=== PATIENT | male | born 1950 | race Two or more races ===

== ENCOUNTER 2016-11-19 07:55 | Emergency (ER) | payer MEDICARE, OTHER ==
[~2016-11-19] VITALS: Ht 157.5 cm; Wt 68.0 kg
[2016-11-19] MEDS ORDERED: ONDA4TAB10 SL (08:24)
--- NOTE | 2016-11-19 08:25 | PHYS DOC ---
Past Medical History Past Medical History: High Cholesterol, Hypertension Past Surgical History: No Surgical History Alcohol Use: None Drug Use: None Adult General Chief Complaint Chief Complaint: NAUSEA/VOMITING/DIARRHA HPI HPI 58-year-old male presenting to the emergency department today with nausea vomiting and watery diarrhea. His been present for 24-48 hours. He has cramping of his abdomen generally without a focus. The pain is moderate to mild nonradiating intermittent and associated with watery stool. Review of systems is negative for chest pain shortness of breath fevers chills muscle aches. He denies neck stiffness. All other review of systems is negative unless otherwise noted in history of present illness. Review of Systems Review of Systems SEE ABOVE. Current Medications Current Medications Current Medications Medications (Trade) Dose Ordered Sig/Aj Start Time Stop Time Status Last Admin Dose Admin Ondansetron HCl (Zofran) 4 mg PRN Q30MIN PRN 11/19/16 09:00 11/19/16 11:08 DC Sodium Chloride (Iv Sodium Chloride 0.9% 500ml Bag) 500 ml @ 500 mls/hr 1X ONCE 11/19/16 09:00 11/19/16 09:59 DC 11/19/16 08:39 500 MLS/HR Allergies Allergies Allergies Coded Allergies Type Severity Reaction Last Updated Verified aspirin Adverse Reaction Intermediate Nausea 03/10/15 No Physical Exam Physical Exam Constitutional: Well developed, well nourished, no acute distress, non-toxic appearance. HENT: Normocephalic, atraumatic, bilateral external ears normal, oropharynx moist, no oral exudates, nose normal. [] Eyes: PERRLA, EOMI, conjunctiva normal, no discharge. [] Neck: Normal range of motion, no tenderness, supple, no stridor. Cardiovascular:Heart rate regular rhythm, no murmur [] Lungs & Thorax: Bilateral breath sounds clear to auscultation Abdomen: Soft nontender abdomen without rebound tenderness or guarding present. Nondistended. Negative McBurneys point. Negative Rodríguez sign. No ecchymosis present. Skin: Warm, dry, no erythema, no rash. [] Back: No tenderness, no CVA tenderness. Extremities: No tenderness, no cyanosis, no clubbing, ROM intact, no edema. [] Neurologic: Alert and oriented X 3, normal motor function, normal sensory function, no focal deficits noted. Psychologic: Affect normal, judgement normal, mood normal. [] Current Patient Data Vital Signs Vital Signs Date Time Temp Pulse Resp B/P Pulse Ox O2 Delivery O2 Flow Rate FiO2 11/19/16 11:00 61 16 142/73 97 Room Air 11/19/16 08:03 98.2 98.2 Lab Values Laboratory Tests Test 11/19/16 08:25 11/19/16 09:12 White Blood Count 6.5x10^3/uL (4.0-11.0) Red Blood Count 7.28x10^6/uL (4.30-5.70) H Hemoglobin 13.2g/dL (13.0-17.5) Hematocrit 41.7% (39.0-53.0) Mean Corpuscular Volume 57fL (79-100) L Mean Corpuscular Hemoglobin 18pg (25-35) L Mean Corpuscular Hemoglobin Concent 32g/dL (31-37) Red Cell Distribution Width 17.2% (11.5-14.5) H Platelet Count 175x10^3/uL (140-400) Neutrophils (%) (Auto) 62% (31-73) Lymphocytes (%) (Auto) 27% (24-48) Monocytes (%) (Auto) 11% (0-9) H Eosinophils (%) (Auto) 0% (0-3) Basophils (%) (Auto) 0% (0-3) Neutrophils # (Auto) 4.1x10^3uL (1.8-7.7) Lymphocytes # (Auto) 1.7x10^3/uL (1.0-4.8) Monocytes # (Auto) 0.7x10^3/uL (0.0-1.1) Eosinophils # (Auto) 0.0x10^3/uL (0.0-0.7) Basophils # (Auto) 0.0x10^3/uL (0.0-0.2) Platelet Estimate Adequate (ADEQUATE) Giant Platelets Occ Hypochromasia Marked Poikilocytosis Present Anisocytosis Slight Microcytosis Marked Target Cells Present Sodium Level 140mmol/L (136-145) Potassium Level 3.4mmol/L (3.5-5.1) L Chloride Level 106mmol/L (98-107) Carbon Dioxide Level 21mmol/L (21-32) Anion Gap 13 (6-14) Blood Urea Nitrogen 18mg/dL (8-26) Creatinine 0.9mg/dL (0.7-1.3) Estimated GFR (Cockcroft-Gault) 83.9 BUN/Creatinine Ratio 20 (6-20) Glucose Level 126mg/dL (70-99) H Calcium Level 9.0mg/dL (8.5-10.1) Total Bilirubin 0.4mg/dL (0.2-1.0) Aspartate Amino Transferase (AST) 27U/L (15-37) Alanine Aminotransferase (ALT) 43U/L (16-63) Alkaline Phosphatase 120U/L (46-116) H Total Protein 8.5g/dL (6.4-8.2) H Albumin 3.8g/dL (3.4-5.0) Albumin/Globulin Ratio 0.8 (1.0-1.7) L Lipase 224U/L (73-393) Urine Collection Type Unknown Urine Color Malu Urine Clarity Cloudy Urine pH 5.5 Urine Specific Ellerbe >=1.030 Urine Protein 100mg/dL (NEG-TRACE) Urine Glucose (UA) Negativemg/dL (NEG) Urine Ketones (Stick) Negativemg/dL (NEG) Urine Blood Negative (NEG) Urine Nitrite Negative (NEG) Urine Bilirubin Negative (NEG) Urine Urobilinogen Dipstick 0.2mg/dL (0.2 mg/dL) Urine Leukocyte Esterase Negative (NEG) Urine RBC 0/HPF (0-2) Urine WBC 0/HPF (0-4) Urine Squamous Epithelial Cells Occ/LPF Urine Amorphous Sediment Present/HPF Urine Bacteria 0/HPF (0-FEW) Urine Mucus Mod/LPF Laboratory Tests 11/19/16 08:25 Laboratory Tests 11/19/16 08:25 EKG EKG [] Radiology/Procedures Radiology/Procedures [] Course & Med Decision Making Course & Med Decision Making Pertinent Labs and Imaging studies reviewed. (See chart for details) [] 66-year-old male presenting to the emergency department today with nausea vomiting and watery diarrhea. He denies blood in his stool. Vital signs. Physical exam was unremarkable. Blood work obtained which. On reexamination the abdomen continued to be nontender. Nontender appendix. Nontender gallbladder. No acute distress. The patient was subsequent discharged home with oral Zofran as needed to follow up with his primary care physician over the next 2-3 days if his symptoms did not improve. [id number] discharge instructions were given. Dragon Disclaimer Dragon Disclaimer This electronic medical record was generated, in whole or in part, using a voice recognition dictation system. Departure Departure Impression: Primary Impression: Nausea vomiting and diarrhea Disposition: HOME, SELF-CARE Condition: STABLE Referrals: ALFONZO GUZMAN MD (PCP) Patient Instructions: Nausea and Vomiting Additional Instructions: Thank you for allowing us to participate in your care today. Followup with your primary care physician in 3 days if your symptoms do not improve. If you do not have a primary care provider you can ask for a list of our primary care providers. Return to the emergency department you have any new or concerning findings. This should be evaluated by the primary care physician and any necessary consulting services for continued management within a few days after discharge. Return to emergency room if you have any new or concerning symptoms including but not limited to fever, chills, nausea, vomiting, intractable pain, any new rashes, chest pain, shortness of air, uncontrolled bleeding, difficulty breathing, and/or vision loss. Scripts Potassium Chloride 10 Meq Tablet.er10 Meq PO DAILY #7 TAB Prov:SAMI FRAGOSO MD 11/19/16 Ondansetron (Zofran Odt)4 Mg Tab.rapdis1 Tab SL PRN Q8HRS PRN NAUSEA #6 TAB Prov:SAMI FRAGOSO MD 11/19/16 SAMI FRAGOSO MD Nov 19, 2016 08:24
[2016-11-19 08:34] LABS: BASO % 0 % (0-3); EOS % 0 % (0-3); HEMATOCRIT 41.7 % (39.0-53.0); HEMOGLOBIN 13.2 g/dL (13.0-17.5); LYMPH # 1.7 x10^3/uL (1.0-4.8); LYMPH % 27 % (24-48); MEAN CORPUSCULAR HEMOGLOBIN 18 pg (25-35); MEAN CORPUSCULAR HGB CONC 32 g/dL (31-37); MEAN CORPUSCULAR VOLUME 57 fL (79-100); MONO % 11 % (0-9); NEUT % 62 % (31-73); PLATELET COUNT 175 x10^3/uL (140-400); RED BLOOD COUNT 7.28 x10^6/uL (4.30-5.70); RED CELL DISTRIBUTION WIDTH 17.2 % (11.5-14.5); WHITE BLOOD COUNT 6.5 x10^3/uL (4.0-11.0)
[2016-11-19 08:44] LABS: CREATININE 0.9 mg/dL (0.7-1.3); GFR 83.9; POTASSIUM 3.4 mmol/L (3.5-5.1)
[2016-11-19 08:50] LABS: ALBUMIN 3.8 g/dL (3.4-5.0); ALBUMIN/GLOBULIN RATIO 0.8 (1.0-1.7); TOTAL BILIRUBIN 0.4 mg/dL (0.2-1.0); TOTAL PROTEIN 8.5 g/dL (6.4-8.2)
[2016-11-19] MEDS ORDERED: ONDANSETRON PF 4 MG/2 ML VIAL. IV PRN (09:00)
[2016-11-19] MEDS ORDERED: IV NORMAL SALINE 500ML BAG 500 ML IV ONE (09:00)
[2016-11-19 09:26] LABS: BILIRUBIN,URINE NEGATIVE (NEG); GLUCOSE,URINE NEGATIVE (NEG); NITRITE,URINE NEGATIVE (NEG); PH,URINE 5.5; PROTEIN,URINE 100 mg/dL (NEG-TRACE); UROBILINOGEN,URINE 0.2 mg/dL (0.2 mg/dL)
[2016-11-19 09:54] LABS: BACTERIA,URINE 0 /HPF (0-FEW); RBC,URINE 0 /HPF (0-2); SQUAMOUS EPITHELIAL CELL,UR OCC /LPF; WBC,URINE 0 /HPF (0-4)
[2016-11-19] MEDS ORDERED: POTA10TA10 PO (10:45)
[2016-11-19 11:00] VITALS: BP 142/73
[2016-11-19 11:46] LABS: HYPOCHROMIA MARKED; MICROCYTOSIS MARKED; PLT ESTIMATE ADEQUATE (ADEQUATE)
[2016-11-19 11:47] LABS: ANISOCYTOSIS SLIGHT; POIKILOCYTOSIS PRESENT; TARGET CELLS PRESENT
== END 2016-11-19 11:08 | disposition home or self-care (01) ==
LOC: ER 07:55
DX: R11.2 Nausea with vomiting, unspecified (principal); R19.7 Diarrhea, unspecified; I10 Essential (primary) hypertension; E78.00 Pure hypercholesterolemia, unspecified; Z88.6 Allergy status to analgesic agent
CPT/HCPCS: 36415; 80053; 81001; 83690; 85007; 85027; 99284; J7040

== ENCOUNTER → 2018-01-29 | Outpatient (CLI) | payer MEDICARE, OTHER | END | disposition home or self-care (01) | LOC: RAD 09:21 | DX: M47.896 Other spondylosis, lumbar region (principal); M25.561 Pain in right knee; M25.562 Pain in left knee | CPT/HCPCS: 72110; 73562 ==

== ENCOUNTER → 2018-02-08 | Outpatient (CLI) | payer MEDICARE, OTHER | END | disposition home or self-care (01) | LOC: MRI 08:12 | DX: M51.36 Other intervertebral disc degeneration, lumbar region (principal); M48.07 Spinal stenosis, lumbosacral region; M25.48 Effusion, other site | CPT/HCPCS: 72148 ==

== ENCOUNTER → 2018-11-29 | Outpatient (CLI) | payer MEDICARE, OTHER ==
[~2018-11-29] MED LIST: IOHEXOL 350 MG/ML 100 ML VIAL. IV ONE; ONDA4TAB10 SL; POTA10TA12 PO
--- NOTE | 2018-11-29 13:12 | RAD ---
PQRS Compliance statement: One or more of the following individualized dose reduction techniques were utilized for this examination: 1. Automated exposure control. 2. Adjustment of the mA and/or kV according to patient size. 3. Use of iterative reconstruction technique. Indication:ABDOMINAL BRUIT INJ 90ML OMNI 350 NO PREV TECHNIQUE: CT angiography abdomen with IV contrast with multiplanar MIP reformats. 3-D volume rendered postprocessing was performed. COMPARISON: None FINDINGS: Heart is normal in size. No pericardial or pleural effusion. Clear lung bases. Artery of phase appearance of the liver, spleen, gallbladder, pancreas, adrenals and kidneys within normal limits. No retroperitoneal adenopathy. Mild diffuse atherosclerotic disease seen of the infrarenal aorta and bilateral common iliac arteries. The celiac axis, splenic artery, left gastric artery, common hepatic artery, SMA, JAVI, bilateral renal arteries are patent without atherosclerotic disease. Visualized bowel within normal limits. Normal appendix. No suspicious bony lesion. IMPRESSION: Mild atherosclerotic disease of the infrarenal aorta and bilateral common iliac arteries. No significant stenosis. Electronically signed by: Tj Frias DO (11/29/2018 1:09 PM) [id number]
== END | disposition home or self-care (01) ==
LOC: CT 15:33
PROVIDERS: ATTEND Family Medicine
DX: I70.0 Atherosclerosis of aorta (principal); I70.8 Atherosclerosis of other arteries; I10 Essential (primary) hypertension
CPT/HCPCS: 74175; Q9967